=== PATIENT | female | born 1990 | race Caucasian/White ===

== ENCOUNTER 2017-11-20 17:06 | Emergency (ER) | payer OTHER ==
[~2017-11-20] VITALS: Ht 162.6 cm; Wt 104.5 kg
[2017-11-20] MEDS ORDERED: BIRTH CONTROL (17:08)
[2017-11-20] MEDS ORDERED: IBUPROFEN 600 MG TABLET PO ONE (18:15)
[2017-11-20] MEDS ORDERED: ONDANSETRON HCL 4 MG TABLET PO ONE (18:15)
[2017-11-20 18:27] LABS: BASOPHILS % (AUTO) 0.6 % (0.0-2.0); EOSINOPHILS % (AUTO) 2.5 % (1.0-6.0); HEMATOCRIT 40.9 % (36-46); HEMOGLOBIN 13.7 g/dL (12.0-16.0); LYMPHOCYTES # (AUTO) 2.3 K/uL (1.0-4.8); LYMPHOCYTES % (AUTO) 23.7 % (22.0-44.0); MEAN CORPUSCULAR HEMOGLOBIN 28.9 pg (26.0-34.0); MEAN CORPUSCULAR HGB CONC 33.5 G/dL (31.0-37.0); MEAN CORPUSCULAR VOLUME 86 fL (80-100); MONOCYTES # (AUTO) 0.6 K/uL (0.1-1.0); MONOCYTES % (AUTO) 6.7 % (2.0-9.0); NEUTROPHILS # (AUTO) 6.4 K/uL (1.8-7.7); NEUTROPHILS % (AUTO) 66.5 % (40.0-70.0); PLATELET COUNT (AUTO) 237 K/uL (150-450); RED BLOOD CELL COUNT(AUTO) 4.74 MIL/uL (4.00-5.20); RED CELL DISTRIBUTION WIDTH 14.2 % (11.5-14.5)
[2017-11-20 18:41] LABS: ANION GAP 12 mmol/L (8-16); CALCIUM, TOTAL 9.1 mg/dL (8.8-10.5); CARBON DIOXIDE 24 mmol/L (22-29); CHLORIDE 104 mmol/L (98-107); CREATININE 0.74 mg/dL (0.60-1.30); GLOMERULAR FILTR. RATE CALC > 60 mL/min (>60); GLUCOSE,RANDOM 89 mg/dL (70-110); POTASSIUM 3.8 mmol/L (3.5-5.1); SODIUM SERUM 140 mmol/L (136-145); UREA NITROGEN, BLOOD 15 mg/dL (7-18)
[2017-11-20 20:45] VITALS: BP 124/83
== END 2017-11-20 20:54 | disposition home or self-care (01) ==
LOC: EMS 17:07
DX: R07.9 Chest pain, unspecified (principal); R11.0 Nausea
CPT/HCPCS: 36415; 71045; 80048; 84703; 85025; 85379; 93005; 99285; Q0162

== ENCOUNTER 2019-01-02 19:55 | Observation (INO) | payer OTHER ==
[~2019-01-02] VITALS: Ht 137.2 cm; Wt 117.9 kg
[~2019-01-02 19:55] MED LIST: BIRTH CONTROL
[2019-01-02] MEDS ORDERED: PREN-217 PO (21:47)
[2019-01-02 22:26] VITALS: BP 137/89
[2019-01-02 23:46] LABS: BASOPHILS % (AUTO) 0.3 % (0.0-2.0); EOSINOPHILS % (AUTO) 2.3 % (1.0-6.0); HEMATOCRIT 34.9 % (36-46); HEMOGLOBIN 11.6 g/dL (12.0-16.0); LYMPHOCYTES # (AUTO) 1.9 K/uL (1.0-4.8); LYMPHOCYTES % (AUTO) 20.5 % (22.0-44.0); MEAN CORPUSCULAR HEMOGLOBIN 28.2 pg (26.0-34.0); MEAN CORPUSCULAR HGB CONC 33.1 G/dL (31.0-37.0); MEAN CORPUSCULAR VOLUME 85 fL (80-100); MONOCYTES # (AUTO) 0.9 K/uL (0.1-1.0); MONOCYTES % (AUTO) 9.4 % (2.0-9.0); NEUTROPHILS # (AUTO) 6.2 K/uL (1.8-7.7); NEUTROPHILS % (AUTO) 67.5 % (40.0-70.0); PLATELET COUNT (AUTO)-OB 275 K/uL (150-450); RED CELL DISTRIBUTION WIDTH 14.2 % (11.5-14.5)
[2019-01-02 23:52] LABS: ANION GAP 8 mmol/L (8-16); CALCIUM, TOTAL 8.6 mg/dL (8.8-10.5); CARBON DIOXIDE 23 mmol/L (22-29); CHLORIDE 106 mmol/L (98-107); CREATININE 0.64 mg/dL (0.60-1.30); GLOMERULAR FILTR. RATE CALC > 60 mL/min (>60); GLUCOSE,RANDOM 91 mg/dL (70-110); SODIUM SERUM 137 mmol/L (136-145); UREA NITROGEN, BLOOD 12 mg/dL (7-18)
[2019-01-02 23:58] LABS: ALANINE AMINOTRANSFERASE 18 U/L (12-78); ALBUMIN 2.5 g/dL (3.4-5.0); ALKALINE PHOSPHATASE 125 U/L (46-116); ASPARTATE AMINOTRANSFERASE 14 U/L (15-37); BILIRUBIN,TOTAL 0.1 mg/dL (0.1-1.0); TOTAL PROTEIN, SERUM 6.5 g/dL (6.4-8.2)
== END 2019-01-03 01:15 | disposition home or self-care (01) ==
LOC: 4S 19:55
PROVIDERS: ADMIT Obstetrics & Gynecology; ATTEND Obstetrics & Gynecology
DX: O26.893 Other specified pregnancy related conditions, third trimester (principal); R10.12 Left upper quadrant pain; Z3A.36 36 weeks gestation of pregnancy
CPT/HCPCS: 36415; 76700; 80053; 81002; 84550; 85025; G0378 ×2

== ENCOUNTER 2019-02-05 10:28 | Inpatient (IN) | payer OTHER ==
[~2019-02-05] VITALS: Ht 162.6 cm; Wt 119.7 kg
[~2019-02-05 10:28] MED LIST changes: +PREN-217 PO
[2019-02-05] MEDS ORDERED: RINGERS SOLUTION,LACTATED 1,000 ML IV PRN (10:29)
[2019-02-05] MEDS ORDERED: OXYTOCIN 30 UNITS/LACT RINGERS 500 ML IV ONE (10:29)
[2019-02-05] MEDS ORDERED: METOCLOPRAMIDE HCL 5 MG/ML 2 ML VIAL IVP PRN (10:30)
[2019-02-05] MEDS ORDERED: METHYLERGONOVINE MALEATE 0.2 MG/ML VIAL IM PRN (10:30)
[2019-02-05] MEDS ORDERED: CITRIC ACID/SODIUM CITRATE 30 ML SOLUTION UDCUP PO PRN (10:30)
[2019-02-05] MEDS: OXYGEN THERAPY IH SCH ×2 (10:30→20:00)
[2019-02-05] MEDS ORDERED: FentaNYL CITRATE-PF 100 MCG/2 ML VIAL IVP PRN (10:30)
[2019-02-05 10:46] VITALS: BP 127/76
[2019-02-05] MEDS ORDERED: PREN-217 PO (10:49)
[2019-02-05] MEDS ORDERED: ASPI-989 PO (10:49)
[2019-02-05 11:43] LABS: BASOPHILS % (AUTO) 0.8 % (0.0-2.0); EOSINOPHILS % (AUTO) 0.9 % (1.0-6.0); HEMATOCRIT 36.7 % (36-46); LYMPHOCYTES # (AUTO) 1.4 K/uL (1.0-4.8); LYMPHOCYTES % (AUTO) 18.1 % (22.0-44.0); MEAN CORPUSCULAR HEMOGLOBIN 27.4 pg (26.0-34.0); MEAN CORPUSCULAR HGB CONC 32.8 G/dL (31.0-37.0); MEAN CORPUSCULAR VOLUME 84 fL (80-100); MONOCYTES # (AUTO) 0.5 K/uL (0.1-1.0); MONOCYTES % (AUTO) 7.1 % (2.0-9.0); NEUTROPHILS # (AUTO) 5.6 K/uL (1.8-7.7); NEUTROPHILS % (AUTO) 73.1 % (40.0-70.0); PLATELET COUNT (AUTO) 264 K/uL (150-450); RED BLOOD CELL COUNT(AUTO) 4.39 MIL/uL (4.00-5.20); RED CELL DISTRIBUTION WIDTH 15.1 % (11.5-14.5)
[2019-02-05] MEDS ORDERED: DINOPROSTONE 10 MG VAGINAL SUPPOSITORY VG ONE (11:45)
[2019-02-05] MEDS: RINGERS SOLUTION,LACTATED 1,000 ML IV SCH ×3 (12:28→21:41)
[2019-02-05] MEDS ORDERED: MISOPROSTOL 25 MCG TABLET VG ONE (18:15)
[2019-02-05] MEDS ORDERED: MISOPROSTOL 25 MCG TABLET VG SCH (23:00)
[2019-02-06] MEDS ORDERED: OXYTOCIN 30 UNITS/LACT RINGERS 500 ML IV PRN (00:26)
[2019-02-06] MEDS ORDERED: MISOPROSTOL 25 MCG TABLET VG SCH (03:45)
[2019-02-06] MEDS: RINGERS SOLUTION,LACTATED 1,000 ML IV SCH ×3 (03:59→19:41)
[2019-02-06] MEDS: OXYGEN THERAPY IH SCH ×2 (08:00→20:00)
[2019-02-07] MEDS: RINGERS SOLUTION,LACTATED 1,000 ML IV SCH ×2 (03:34→11:02)
[2019-02-07] MEDS ORDERED: EPHEDrine SULFATE 50 MG/ML VIAL IM ONE (12:00)
[2019-02-07] MEDS ORDERED: DEXAMETHASONE SOD PHOS 4 MG/ML VIAL IVP ONE (12:00)
[2019-02-07] MEDS ORDERED: OXYTOCIN 10 UNITS/ML VIAL IM ONE (12:00)
[2019-02-07] MEDS ORDERED: ONDANSETRON HCL 4 MG/2 ML VIAL IVP ONE (12:00)
[2019-02-07] MEDS ORDERED: ACETAMINOPHEN 1000 MG/ISO-OSM 100 ML IV ONE (15:50)
[2019-02-07] MEDS ORDERED: MORPHINE SULFATE/PF 1 MG/ML 10 ML AMP ONE (15:50)
[2019-02-07] MEDS ORDERED: FentaNYL CITRATE-PF 100 MCG/2 ML VIAL ONE (15:50)
[2019-02-07] MEDS ORDERED: BUPIVACAINE HCL/DEX-WATER/PF 0.75% 2 ML AMP ONE (15:50)
[2019-02-07] MEDS ORDERED: ONDANSETRON HCL 4 MG/2 ML VIAL IVP PRN ×2 (16:00→16:15)
[2019-02-07] MEDS ORDERED: NALBUPHINE HCL 10 MG/ML VIAL IVP PRN ×2 (16:00)
[2019-02-07] MEDS ORDERED: DiphenhydrAMINE HCL 50 MG/ML VIAL IVP PRN (16:00)
[2019-02-07] MEDS ORDERED: NALOXONE HCL 0.4 MG/ML VIAL IVP PRN (16:00)
[2019-02-07] MEDS ORDERED: MORPHINE SULFATE 10 MG/ML SYRINGE IVP PRN (16:00)
[2019-02-07] MEDS ORDERED: FentaNYL CITRATE-PF 100 MCG/2 ML VIAL IVP PRN ×2 (16:00→16:15)
[2019-02-07] MEDS ORDERED: MORPHINE SULFATE 2 MG/ML SYRINGE IVP PRN (16:15)
[2019-02-07] MEDS ORDERED: MEPERIDINE-PF 25 MG/ML VIAL IVP PRN (16:15)
[2019-02-07] MEDS ORDERED: OXYTOCIN 30 UNITS/LACT RINGERS 500 ML IV ONE (17:38)
[2019-02-07] MEDS ORDERED: RINGERS SOLUTION,LACTATED 1,000 ML IV SCH (17:38)
[2019-02-07] MEDS ORDERED: OxyCODONE HCL/ACETAMINOPHEN 5-325 MG TABLET PO PRN ×2 (17:45)
[2019-02-07] MEDS ORDERED: LANOLIN 7 GM OINTMENT TP PRN (17:45)
[2019-02-07] MEDS ORDERED: DiphenhydrAMINE HCL 50 MG/ML VIAL ONE (19:21)
[2019-02-07] MEDS ORDERED: OXYGEN THERAPY IH SCH ×2 (20:00)
[2019-02-07] MEDS: KETOROLAC TROMETHAMINE 30 MG/ML VIAL IVP SCH (21:27)
[2019-02-07] MEDS: ACETAMINOPHEN 1000 MG/ISO-OSM 100 ML IV SCH (23:29)
[2019-02-08] MEDS: KETOROLAC TROMETHAMINE 30 MG/ML VIAL IVP SCH (03:32)
[2019-02-08] MEDS: ACETAMINOPHEN 1000 MG/ISO-OSM 100 ML IV SCH (05:03)
[2019-02-08 05:54] LABS: BASOPHILS % (AUTO) 0.2 % (0.0-2.0); EOSINOPHILS % (AUTO) 0.1 % (1.0-6.0); HEMATOCRIT 28.8 % (36-46); HEMOGLOBIN 9.6 g/dL (12.0-16.0); LYMPHOCYTES # (AUTO) 1.6 K/uL (1.0-4.8); LYMPHOCYTES % (AUTO) 11.7 % (22.0-44.0); MEAN CORPUSCULAR HEMOGLOBIN 27.7 pg (26.0-34.0); MEAN CORPUSCULAR HGB CONC 33.2 G/dL (31.0-37.0); MEAN CORPUSCULAR VOLUME 84 fL (80-100); MONOCYTES % (AUTO) 7.1 % (2.0-9.0); NEUTROPHILS # (AUTO) 11.2 K/uL (1.8-7.7); NEUTROPHILS % (AUTO) 80.9 % (40.0-70.0); PLATELET COUNT (AUTO)-OB 214 K/uL (150-450); RED BLOOD CELL COUNT(AUTO) 3.45 MIL/uL (4.00-5.20); RED CELL DISTRIBUTION WIDTH 15.1 % (11.5-14.5)
[2019-02-08] MEDS: MAGNESIUM HYDROXIDE SUSPENSION 30 ML UDCUP PO SCH ×2 (09:00→10:04)
[2019-02-09] MEDS: IBUPROFEN 800 MG TABLET PO PRN ×3 (00:21→21:30)
[2019-02-10] MEDS: IBUPROFEN 800 MG TABLET PO PRN (08:28)
[2019-02-10] MEDS ORDERED: IBUP-2070 PO (10:36)
[2019-02-10] MEDS ORDERED: ACET-2247 PO (10:38)
[2019-02-10] MEDS ORDERED: DOCU-275 PO (10:39)
[2019-02-10] MEDS ORDERED: PERCT PO (10:40)
== END 2019-02-10 13:25 | disposition home or self-care (01) | DRG 540 ==
LOC: 4S 10:28 → OBSVTOIN 10:28 → 4S 02-07 19:09
PROVIDERS: ADMIT Obstetrics & Gynecology; ATTEND Obstetrics & Gynecology
PROC: 10D00Z1 Extraction of Products of Conception, Low, Open Approach (ICD-10-PCS; principal; 2019-02-07)
DX: O62.2 Other uterine inertia (principal); O69.81X0 Labor and delivery complicated by cord around neck, without compression, not applicable or unspecified; Z37.0 Single live birth; Z3A.41 41 weeks gestation of pregnancy
CPT/HCPCS: 86850; 86900; 86901; 86920; J0131; J0690; J1100; J1200; J1885; J2405; J2590; J2765; J3010; J3490; J7120